=== PATIENT | male | born 2000 | race Caucasian/White ===

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

== ENCOUNTER 2018-11-27 20:31 | Emergency (ER) | payer OTHER ==
[~2018-11-27] VITALS: Ht 180.3 cm; Wt 70.3 kg
[~2018-11-27 20:31] MED LIST changes: +BENTYL 20 MG TA20 M1 PO
[2018-11-27] MEDS ORDERED: IBUPROFEN 400400 M2 (20:37)
[2018-11-27] MEDS ORDERED: AUGMENTIN 875-1 EACH (20:37)
[2018-11-27] MEDS ORDERED: BACTRIM DS TAB1 EACH PO ×2 (21:40→21:41)
[2018-11-27 21:58] VITALS: BP 116/75
== END 2018-11-27 21:58 | disposition home or self-care (01) ==
LOC: M.ERS 20:31
DX: L02.511 Cutaneous abscess of right hand (principal); F90.9 Attention-deficit hyperactivity disorder, unspecified type; J45.909 Unspecified asthma, uncomplicated; F17.210 Nicotine dependence, cigarettes, uncomplicated; Z88.5 Allergy status to narcotic agent